=== PATIENT | female | born 1980 | race Caucasian/White ===

== ENCOUNTER → 2018-03-12 | Outpatient (CLI) | payer OTHER ==
[~2018-03-12] MED LIST: ACETAMINOPHEN-1 EAC1 PO; ACYCLOVIR 400400 M1 PO; ATIVAN1 MG PO; BENADRYL25 MG PO; BENTYL 10 MG CA10 M1 PO; BENTYL 20 MG TA20 M1 PO; CELEBREX 200 M200 M1; CIPRO250 M1 PO; CLARITIN5 MG PO; DOXYCYCLINE HY100 MG PO; ESTRADIOL 1 MG T1 M1 PO; FLAGYL500 M1 PO; FLAGYL500 MG PO; GABAPENTIN100 MG PO; IBUPROFEN 800800 M1 PO; LEVOTHYROXINE0.05 MG PO; LIORESAL 10 MG10 MG; MACROBID 100 M100 M1 PO; NAPROSYN500 MG PO; NEXIUM40 MG PO; OMEPRAZOLE40 MG PO; PEPCID20 MG PO; PREDNISONE 20 M20 M1 PO; PREDNISONE 20 M20 MG PO; RELAFEN500 MG PO; TIZANIDINE HCL4 M1 PO; TIZANIDINE HCL4 MG PO; ULTRAM 50MG TAB50 MG; VALACYCLOVIR500 MG PO; ZANTAC 150MG T150 M1 PO; ZANTAC 150MG T150 MG; ZOFRAN 4 MG ORAL4 MG PO; ZOFRAN ODT4 MG PO
== END ==
LOC: M.CT 13:36
DX: R10.32 Left lower quadrant pain (principal); R30.9 Painful micturition, unspecified; R30.0 Dysuria; R31.9 Hematuria, unspecified

== ENCOUNTER 2019-08-27 12:29 | Emergency (ER) | payer OTHER ==
[~2019-08-27] VITALS: Ht 170.2 cm; Wt 97.5 kg
[2019-08-27] MEDS ORDERED: LEVO-T75 MCG PO (12:54)
[2019-08-27] MEDS ORDERED: VALACYCLOVIR1000 MG PO (12:54)
[2019-08-27] MEDS ORDERED: SYMBICORT160 MCG/4. INH (12:55)
[2019-08-27] MEDS ORDERED: PROAIR HFA8.5 GM INH (12:55)
[2019-08-27] MEDS ORDERED: RANITIDINE HCL300 M1 PO (12:55)
[2019-08-27] MEDS ORDERED: DULOXETINE HCL30 MG PO (12:55)
[2019-08-27] MEDS ORDERED: ALL DAY ALLERGY10 M3 PO (12:56)
[2019-08-27] MEDS ORDERED: LINZESS72 MCG PO (12:56)
[2019-08-27] MEDS ORDERED: PROTONIX40 M2 PO (12:56)
[2019-08-27] MEDS ORDERED: WOMEN MULTIVIT1 EACH PO (12:57)
[2019-08-27 13:03] LABS: ABSOLUTE BASOPHILS 0.1 thou/uL (0.0-0.2); ABSOLUTE EOSINOPHILS 0.1 thou/uL (0.0-0.7); ABSOLUTE LYMPHOCYTES 4.6 thou/uL (0.8-5.3); ABSOLUTE MONOCYTES 0.7 thou/uL (0.0-1.2); BASOPHILS 1.1 %; EOSINOPHILS 1.3 %; HEMATOCRIT 39.6 % (37.0-47.0); HEMOGLOBIN 13.7 gm/dL (12.0-15.0); LYMPHOCYTES 39.6 %; MCH 30.8 pg (26.0-34.0); MCHC 34.6 g/dL (28.0-37.0); MONOCYTES 6.2 %; MPV 7.7 fl. (7.2-11.1); NUCLEATED RBCS 0 /100WBC; PLATELET COUNT* 364 thou/uL (150-400); POLYS 51.8 %; RBC 4.45 mil/uL (4.20-5.00); RDW-CV 12.4 % (10.5-14.5); WBC 11.5 thou/uL (4.0-11.0)
[2019-08-27 13:03] LABS: URINE BILIRUBIN NEGATIVE (Negative); URINE BLOOD TRACE (Negative); URINE CLARITY CLEAR; URINE COLOR YELLOW; URINE GLUCOSE-RANDOM NEGATIVE (Negative); URINE KETONES NEGATIVE (Negative); URINE LEUKOCYTES-REFLEX NEGATIVE (Negative); URINE NITRITE-REFLEX NEGATIVE (Negative); URINE PROTEIN NEGATIVE (Negative); URINE SPECIFIC GRAVITY >= 1.030 (1.005-1.030); URINE UROBILINOGEN 0.2 E.U./dl (0.2-1.0)
[2019-08-27 13:10] LABS: AMP/METHAMP Negative (Negative); BARBITURATES Negative (Negative); BENZODIAZEPINES Negative (Negative); COCAINE Negative (Negative); METHADONE Negative (Negative); OPIATES Negative (Negative); PCP Negative (Negative); THC Negative (Negative)
[2019-08-27 13:11] LABS: CREATININE 0.8 mg/dL (0.6-1.3); POTASSIUM 3.2 mmol/L (3.5-5.1)
[2019-08-27 13:16] LABS: ALBUMIN 3.6 g/dL (3.4-5.0); TOTAL BILIRUBIN 0.4 mg/dL (<0.1-1.0); TOTAL PROTEIN 7.3 g/dL (6.4-8.2)
[2019-08-27 13:22] LABS: SALICYLATE < 2.8 mg/dL (2.8-20.0)
[2019-08-27 13:23] LABS: ACETAMINOPHEN < 2 ug/mL (10-30); ALCOHOL < 10 mg/dL (<10)
[2019-08-27 17:04] VITALS: BP 107/70
== END 2019-08-27 17:04 ==
LOC: M.ERS 12:29
PROVIDERS: Family Medicine
DX: R45.851 Suicidal ideations (principal); G43.909 Migraine, unspecified, not intractable, without status migrainosus; M19.90 Unspecified osteoarthritis, unspecified site; K21.9 Gastro-esophageal reflux disease without esophagitis; I10 Essential (primary) hypertension; M79.7 Fibromyalgia; Z90.89 Acquired absence of other organs; Z90.710 Acquired absence of both cervix and uterus; Z88.5 Allergy status to narcotic agent; Z91.041 Radiographic dye allergy status; Z88.1 Allergy status to other antibiotic agents

== ENCOUNTER 2020-07-07 10:45 | Emergency (ER) | payer OTHER ==
[~2020-07-07] VITALS: Ht 167.6 cm; Wt 99.8 kg
[~2020-07-07 10:45] MED LIST changes: +ALL DAY ALLERGY10 M3 PO; +DULOXETINE HCL30 MG PO; +LEVO-T75 MCG PO; +LINZESS72 MCG PO; +PROAIR HFA8.5 GM INH; +PROTONIX40 M2 PO; +RANITIDINE HCL300 M1 PO; +SYMBICORT160 MCG/4. INH; +VALACYCLOVIR1000 MG PO; +WOMEN MULTIVIT1 EACH PO
[2020-07-07] MEDS ORDERED: ASPERCREME1 EACH TOP (10:57)
[2020-07-07] MEDS ORDERED: PRAZOSIN 1 MG CA1 M1 PO (10:58)
[2020-07-07] MEDS ORDERED: LORATIDINE 10 M10 M1 PO (10:58)
[2020-07-07] MEDS ORDERED: CELEXA10 MG PO (10:58)
[2020-07-07] MEDS ORDERED: FAMOTIDINE 10 M10 MG PO (10:58)
[2020-07-07] MEDS ORDERED: INDERAL LA120 M1 PO (10:58)
[2020-07-07] MEDS ORDERED: LAMOTRIGINE250 MG PO (10:58)
[2020-07-07] MEDS ORDERED: TYLENOL325 M1 PO (10:59)
[2020-07-07 12:15] VITALS: BP 114/70
== END 2020-07-07 12:15 | disposition home or self-care (01) ==
LOC: M.ERS 10:45
DX: T14.8XXA Other injury of unspecified body region, initial encounter (principal); R07.81 Pleurodynia; M54.5 Low back pain; M25.561 Pain in right knee; G43.909 Migraine, unspecified, not intractable, without status migrainosus; M19.90 Unspecified osteoarthritis, unspecified site; M79.7 Fibromyalgia; I10 Essential (primary) hypertension; Z79.899 Other long term (current) drug therapy; Z88.6 Allergy status to analgesic agent; Z88.8 Allergy status to other drugs, medicaments and biological substances; Z98.51 Tubal ligation status; Z90.710 Acquired absence of both cervix and uterus; W18.39XA Other fall on same level, initial encounter; Y93.89 Activity, other specified; Y92.89 Other specified places as the place of occurrence of the external cause; Y99.8 Other external cause status

== ENCOUNTER 2020-08-08 09:37 | Emergency (ER) | payer OTHER ==
[~2020-08-08] VITALS: Ht 167.6 cm; Wt 98.4 kg
[~2020-08-08 09:37] MED LIST changes: +ASPERCREME1 EACH TOP; +CELEXA10 MG PO; +FAMOTIDINE 10 M10 MG PO; +INDERAL LA120 M1 PO; +LAMOTRIGINE250 MG PO; +LORATIDINE 10 M10 M1 PO; +PRAZOSIN 1 MG CA1 M1 PO; +TYLENOL325 M1 PO
[2020-08-08 10:45] VITALS: BP 130/80
== END 2020-08-08 10:46 | disposition home or self-care (01) ==
LOC: M.ERS 09:37
DX: S20.212A Contusion of left front wall of thorax, initial encounter (principal); S40.022A Contusion of left upper arm, initial encounter; M19.90 Unspecified osteoarthritis, unspecified site; G43.909 Migraine, unspecified, not intractable, without status migrainosus; M79.7 Fibromyalgia; K21.9 Gastro-esophageal reflux disease without esophagitis; I10 Essential (primary) hypertension; Z88.5 Allergy status to narcotic agent; Z88.6 Allergy status to analgesic agent; Z88.1 Allergy status to other antibiotic agents; Z79.899 Other long term (current) drug therapy; Z98.51 Tubal ligation status; Z90.89 Acquired absence of other organs; Z90.710 Acquired absence of both cervix and uterus; W22.8XXA Striking against or struck by other objects, initial encounter; Y93.89 Activity, other specified; Y92.89 Other specified places as the place of occurrence of the external cause; Y99.9 Unspecified external cause status